=== PATIENT | female | born 1975 | race Hispanic/Latino ===

== ENCOUNTER 2017-08-31 17:21 | Emergency (ER) | payer OTHER ==
[2017-08-31] MEDS ORDERED: ORPHENADRINE CITRATE 30 MG/ML ML ONE (18:03)
[2017-08-31] MEDS ORDERED: KETOROLAC TROMETHAMINE 30MG/ML ONE (18:04)
[2017-08-31 18:06] LABS: BASOPHILS % (AUTO) 0.6 % (0.0-5.0); EOSINOPHILS % (AUTO) 2.9 % (0.0-8.0); HEMATOCRIT 42.9 % (36-48); MEAN CORPUSCULAR HEMOGLOBIN 34.7 pg (27.0-33.0); MEAN CORPUSCULAR HGB CONC 35.6 g/dL (32.0-36.0); MEAN CORPUSCULAR VOLUME 97.5 fL (79-99); MONOCYTES % (AUTO) 8.2 % (3.0-13.0); NEUTROPHILS % (AUTO) 65.3 % (40.0-77.0); PLATELET COUNT (AUTO) 245 K/uL (130-400); RED CELL DISTRIBUTION WIDTH 12.6 % (11.0-15.5); WHITE BLOOD COUNT (AUTO) 7.7 K/uL (4.8-10.8)
[2017-08-31 18:15] LABS: CREATININE 0.8 mg/dL (0.5-1.5); POTASSIUM 3.7 mmol/L (3.5-5.1)
== END 2017-08-31 20:32 | disposition home or self-care (01) ==
LOC: EDH 17:21
DX: S39.012A Strain of muscle, fascia and tendon of lower back, initial encounter (principal); Z72.0 Tobacco use; X50.9XXA Other and unspecified overexertion or strenuous movements or postures, initial encounter; Y93.89 Activity, other specified; Y92.89 Other specified places as the place of occurrence of the external cause; Y99.8 Other external cause status
CPT/HCPCS: 36415; 80048; 84703; 85025; 96374; 96375; 99284; J1885; J2360

== ENCOUNTER 2018-05-31 03:25 | Emergency (ER) | payer OTHER ==
[2018-05-31 03:45] LABS: BASOPHILS % (AUTO) 0.8 % (0.0-5.0); EOSINOPHILS % (AUTO) 3.3 % (0.0-8.0); HEMATOCRIT 33.9 % (36-48); LYMPHOCYTES % (AUTO) 32.4 % (21.0-51.0); MEAN CORPUSCULAR HEMOGLOBIN 34.7 pg (27.0-33.0); MEAN CORPUSCULAR HGB CONC 35.1 g/dL (32.0-36.0); NEUTROPHILS % (AUTO) 57.5 % (40.0-77.0); PLATELET COUNT (AUTO) 217 K/uL (130-400); RED BLOOD CELL COUNT(AUTO) 3.42 MIL/uL (4.00-5.50); RED CELL DISTRIBUTION WIDTH 12.6 % (11.0-15.5); WHITE BLOOD COUNT (AUTO) 5.4 K/uL (4.8-10.8)
[2018-05-31] MEDS ORDERED: IOHEXOL 350 MG/ML 100ML INFUS..BTL IV ONE (03:54)
[2018-05-31 03:55] LABS: CREATININE 0.6 mg/dL (0.5-1.5); POTASSIUM 3.6 mmol/L (3.5-5.1)
[2018-05-31 03:59] LABS: ALBUMIN 3.6 g/dL (3.5-5.0); BILIRUBIN,TOTAL 0.1 mg/dL (0.2-1.0); TOTAL PROTEIN, SERUM 7.4 g/dL (6.0-8.3)
[2018-05-31 04:00] LABS: INR 1.03 (0.85-1.15); PARTIAL THROMBOPLASTIN TIME 24.7 SEC (26.3-35.5); PROTHROMBIN TIME 10.8 SEC (9.6-11.6)
[2018-05-31 04:40] LABS: APPEARANCE,URINE Clear (CLEAR); BILIRUBIN,URINE Negative (NEGATIVE); COLOR,URINE Yellow (YELLOW); GLUCOSE, URINE (UA) Negative (NEGATIVE); KETONES,URINE Negative (NEGATIVE); LEUKOCYTE ESTERASE ,URINE Negative (NEGATIVE); NITRATE,URINE Negative (NEGATIVE); OCCULT BLOOD,URINE Negative (NEGATIVE); PH,URINE 5.5 (5.0-8.0); PROTEIN,URINE Negative (NEGATIVE)
[2018-05-31 04:49] LABS: AMPHET/METH SCREEN,URINE NEGATIVE (NEGATIVE); BARBITURATE SCREEN, URINE NEGATIVE (NEGATIVE); BENZODIAZEPINES SCREEN,URINE NEGATIVE (NEGATIVE); CANNABINOID SCREEN,URINE NEGATIVE (NEGATIVE); COCAINE SCREEN,URINE NEGATIVE (NEGATIVE); OPIATE SCREEN,URINE NEGATIVE (NEGATIVE); PHENCYCLIDINE SCREEN,URINE NEGATIVE (NEGATIVE)
[2018-05-31] MEDS ORDERED: KETOROLAC TROMETHAMINE 30MG/ML ONE (05:42)
== END 2018-05-31 06:37 | disposition home or self-care (01) ==
LOC: EDH 03:25
DX: S39.012A Strain of muscle, fascia and tendon of lower back, initial encounter (principal); S76.011A Strain of muscle, fascia and tendon of right hip, initial encounter; R79.1 Abnormal coagulation profile; V03.99XA Pedestrian with other conveyance injured in collision with car, pick-up truck or van, unspecified whether traffic or nontraffic accident, initial encounter; Y93.89 Activity, other specified; Y92.89 Other specified places as the place of occurrence of the external cause; Y99.8 Other external cause status
CPT/HCPCS: 36415; 71045; 71260; 72125; 73552; 74177; 80053; 80305; 81003; 82550; 83690; 84484; 85025; 85610; 85730; 93005; 96374; 99284; G0480; J1885; Q9967

== ENCOUNTER 2018-06-12 21:59 | Emergency (ER) | payer OTHER ==
[2018-06-12] MEDS ORDERED: IBUPROFEN 200 MG TAB ONE (22:40)
[2018-06-12] MEDS ORDERED: IBUPROFEN 400 MG TABLET ONE (22:40)
== END 2018-06-12 23:34 | disposition home or self-care (01) ==
LOC: EDH 21:59
DX: S13.4XXA Sprain of ligaments of cervical spine, initial encounter (principal); Z72.0 Tobacco use; V49.49XA Driver injured in collision with other motor vehicles in traffic accident, initial encounter; Y93.89 Activity, other specified; Y92.89 Other specified places as the place of occurrence of the external cause; Y99.8 Other external cause status
CPT/HCPCS: 72040

== ENCOUNTER 2019-07-13 23:20 | Emergency (ER) | payer SELFPAY ==
[2019-07-13 23:50] LABS: BASOPHILS % (AUTO) 0.6 % (0.0-5.0); EOSINOPHILS % (AUTO) 2.3 % (0.0-8.0); HEMATOCRIT 40.9 % (36-48); LYMPHOCYTES % (AUTO) 33.3 % (21.0-51.0); MEAN CORPUSCULAR HEMOGLOBIN 32.3 pg (27.0-33.0); MEAN CORPUSCULAR HGB CONC 34.7 g/dL (32.0-36.0); MEAN CORPUSCULAR VOLUME 93.2 fL (79-99); NEUTROPHILS % (AUTO) 55.9 % (40.0-77.0); PLATELET COUNT (AUTO) 235 K/uL (130-400); RED BLOOD CELL COUNT(AUTO) 4.39 MIL/uL (4.00-5.50); RED CELL DISTRIBUTION WIDTH 12.4 % (11.0-15.5); WHITE BLOOD COUNT (AUTO) 8.6 K/uL (4.8-10.8)
[2019-07-14 00:01] LABS: CREATININE 0.7 mg/dL (0.5-1.5); POTASSIUM 3.6 mmol/L (3.5-5.1)
[2019-07-14 00:04] LABS: INR 0.95 (0.85-1.15); PARTIAL THROMBOPLASTIN TIME 24.6 SEC (26.3-35.5); PROTHROMBIN TIME 10.3 SEC (9.6-11.6)
[2019-07-14 00:06] LABS: ALBUMIN 3.6 g/dL (3.5-5.0); BILIRUBIN,TOTAL 0.3 mg/dL (0.2-1.0); TOTAL PROTEIN, SERUM 7.8 g/dL (6.0-8.3)
[2019-07-14] MEDS ORDERED: SODIUM CHLORIDE 0.9% 1000ML 1,000 ML IV ONE (00:40)
== END 2019-07-14 03:36 | disposition home or self-care (01) ==
LOC: EDH 23:20
DX: K62.5 Hemorrhage of anus and rectum (principal); F10.20 Alcohol dependence, uncomplicated; R42 Dizziness and giddiness; R19.7 Diarrhea, unspecified; Z72.0 Tobacco use
CPT/HCPCS: 36415; 80053; 82270; 85025; 85610; 85730; 96360; 96361; 99283; J7030

== ENCOUNTER 2021-07-06 15:54 | Emergency (ER) | payer OTHER ==
[~2021-07-06] VITALS: Ht 139.7 cm; Wt 52.2 kg
[2021-07-06 16:16] LABS: BASOPHILS % (AUTO) 0.5 % (0.0-5.0); EOSINOPHILS % (AUTO) 3.3 % (0.0-8.0); HEMATOCRIT 41.9 % (36-48); LYMPHOCYTES % (AUTO) 25.7 % (21.0-51.0); MEAN CORPUSCULAR HEMOGLOBIN 32.8 pg (27.0-33.0); MEAN CORPUSCULAR HGB CONC 34.4 g/dL (32.0-36.0); MEAN CORPUSCULAR VOLUME 95.4 fL (79-99); MONOCYTES % (AUTO) 6.7 % (3.0-13.0); NEUTROPHILS % (AUTO) 63.1 % (40.0-77.0); PLATELET COUNT (AUTO) 187 K/uL (130-400); RED BLOOD CELL COUNT(AUTO) 4.39 MIL/uL (4.00-5.50); RED CELL DISTRIBUTION WIDTH 12.6 % (11.0-15.5); WHITE BLOOD COUNT (AUTO) 7.4 K/uL (4.8-10.8)
[2021-07-06 16:24] LABS: CREATININE 0.6 mg/dL (0.5-1.5); POTASSIUM 3.7 mmol/L (3.5-5.1)
[2021-07-06 16:29] LABS: ALBUMIN 3.5 g/dL (3.5-5.0); BILIRUBIN,TOTAL 0.3 mg/dL (0.2-1.0)
[2021-07-06 17:18] LABS: AMPHET/METH SCREEN,URINE NEGATIVE (NEGATIVE); BARBITURATE SCREEN, URINE NEGATIVE (NEGATIVE); BENZODIAZEPINES SCREEN,URINE NEGATIVE (NEGATIVE); CANNABINOID SCREEN,URINE NEGATIVE (NEGATIVE); COCAINE SCREEN,URINE POSITIVE (NEGATIVE); OPIATE SCREEN,URINE NEGATIVE (NEGATIVE); PHENCYCLIDINE SCREEN,URINE NEGATIVE (NEGATIVE)
[2021-07-06 17:19] LABS: BILIRUBIN,URINE Negative (NEGATIVE); COLOR,URINE Yellow (YELLOW); GLUCOSE, URINE (UA) Negative (NEGATIVE); KETONES,URINE Negative (NEGATIVE); LEUKOCYTE ESTERASE ,URINE Negative (NEGATIVE); NITRATE,URINE Negative (NEGATIVE); OCCULT BLOOD,URINE Negative (NEGATIVE); PROTEIN,URINE Negative (NEGATIVE)
[2021-07-06 17:20] LABS: HCG,QUAL RESULT NEGATIVE (NEGATIVE)
[2021-07-06 17:25] LABS: APPEARANCE,URINE HAZY (CLEAR)
[2021-07-06 17:26] LABS: BACTERIA,URINE Few /HPF (None Seen); RBC,URINE None Seen /HPF (0-1); WBC,URINE 0-1 /HPF (0-1)
[2021-07-06] MEDS ORDERED: PANTOPRAZOLE 40 MG/VIAL IVP ONE (18:00)
[2021-07-06 18:21] VITALS: BP 120/81
== END 2021-07-06 18:31 | disposition home or self-care (01) ==
LOC: EDH 15:54
DX: S39.012A Strain of muscle, fascia and tendon of lower back, initial encounter (principal); F14.10 Cocaine abuse, uncomplicated; X58.XXXA Exposure to other specified factors, initial encounter; Y93.89 Activity, other specified; Y92.89 Other specified places as the place of occurrence of the external cause; Y99.8 Other external cause status
CPT/HCPCS: 36415; 80053; 80305; 81001; 81025; 84484; 85025; 93005; 96374; 99284; C9113

== ENCOUNTER 2022-09-01 22:33 | Emergency (ER) | payer OTHER ==
[~2022-09-01] VITALS: Ht 139.7 cm; Wt 61.2 kg
[2022-09-01 23:28] LABS: BASOPHILS % (AUTO) 0.4 % (0.0-5.0); EOSINOPHILS % (AUTO) 1.2 % (0.0-8.0); HEMATOCRIT 41.5 % (36-48); LYMPHOCYTES % (AUTO) 9.9 % (21.0-51.0); MEAN CORPUSCULAR HEMOGLOBIN 34.1 pg (27.0-33.0); MEAN CORPUSCULAR HGB CONC 35.2 g/dL (32.0-36.0); MONOCYTES % (AUTO) 4.7 % (3.0-13.0); PLATELET COUNT (AUTO) 182 K/uL (130-400); RED BLOOD CELL COUNT(AUTO) 4.28 MIL/uL (4.00-5.50); RED CELL DISTRIBUTION WIDTH 12.6 % (11.0-15.5); WHITE BLOOD COUNT (AUTO) 10.4 K/uL (4.8-10.8)
[2022-09-01] MEDS ORDERED: IPRATROPIUM/ALBUTEROL SULFATE 3 ML SOLUTION IH ONE (23:30)
[2022-09-01] MEDS ORDERED: SOLU-MEDROL 125MG VIAL IVP ONE (23:30)
[2022-09-02 00:17] LABS: CREATININE 0.6 mg/dL (0.5-1.5); POTASSIUM 3.5 mmol/L (3.5-5.1)
[2022-09-02 00:21] LABS: ALBUMIN 3.5 g/dL (3.5-5.0); TOTAL PROTEIN, SERUM 7.4 g/dL (6.0-8.3)
[2022-09-02] MEDS ORDERED: DIPH25CA85 PO (00:57)
[2022-09-02] MEDS ORDERED: EPIN0.3P3 IJ (00:57)
[2022-09-02 01:00] VITALS: BP 109/58
[2022-09-02] MEDS ORDERED: ONDANSETRON 4MG INJ IVP ONE (01:00)
== END 2022-09-02 01:23 | disposition home or self-care (01) ==
LOC: EDH 22:33
DX: T78.49XA Other allergy, initial encounter (principal); F17.200 Nicotine dependence, unspecified, uncomplicated; R06.02 Shortness of breath; Z98.890 Other specified postprocedural states; X58.XXXA Exposure to other specified factors, initial encounter
CPT/HCPCS: 99284; 71045; 80053; 85025; 36415; 94640; 96374; 96375; J2930; J2405

== ENCOUNTER 2023-11-21 14:22 | Emergency (ER) | payer OTHER ==
[~2023-11-21] VITALS: Ht 139.7 cm; Wt 57.2 kg
[~2023-11-21 14:22] MED LIST: DIPH25CA85 PO; EPIN0.3P3 IJ
[2023-11-21 16:09] LABS: BASOPHILS # (AUTO) 0.05 K/uL (0.00-0.20); BASOPHILS % (AUTO) 0.6 % (0.0-5.0); EOSINOPHILS # (AUTO) 0.24 K/uL (0.00-0.70); EOSINOPHILS % (AUTO) 2.8 % (0.0-8.0); HEMATOCRIT 47.4 % (36-48); IMMATURE GRANULOCYTE ABSOLUTE 0.09 K/uL (0-1); LYMPHOCYTES # (AUTO) 1.9 K/uL (1.0-4.8); LYMPHOCYTES % (AUTO) 22.4 % (21.0-51.0); MEAN CORPUSCULAR HEMOGLOBIN 34.8 pg (27.0-33.0); MEAN CORPUSCULAR HGB CONC 35.9 g/dL (32.0-36.0); MEAN CORPUSCULAR VOLUME 96.9 fL (79-99); MONOCYTES # (AUTO) 0.6 K/uL (0.1-1.0); MONOCYTES % (AUTO) 6.8 % (3.0-13.0); NEUTROPHILS # (AUTO) 5.7 K/uL (1.8-7.7); NEUTROPHILS % (AUTO) 66.3 % (40.0-77.0); PLATELET COUNT (AUTO) 214 K/uL (130-400); RED BLOOD CELL COUNT(AUTO) 4.89 MIL/uL (4.00-5.50); RED CELL DISTRIBUTION WIDTH 12.3 % (11.0-15.5); WHITE BLOOD COUNT (AUTO) 8.6 K/uL (4.8-10.8)
[2023-11-21 16:10] LABS: APPEARANCE,URINE CLOUDY (CLEAR); BILIRUBIN,URINE NEGATIVE (NEGATIVE); COLOR,URINE YELLOW (YELLOW); GLUCOSE, URINE (UA) 70 mg/dL (NEGATIVE); KETONES,URINE NEGATIVE (NEGATIVE); LEUKOCYTE ESTERASE ,URINE NEGATIVE Leu/uL (NEGATIVE); NITRATE,URINE NEGATIVE (NEGATIVE); PH,URINE 5.5 (5.0-8.0); PROTEIN,URINE 20 mg/dL (NEGATIVE)
[2023-11-21 16:12] LABS: ADD UA MICROSCOPIC YES
[2023-11-21 16:15] LABS: MUCUS,URINE MANY LPF (None Seen); SQUAMOUS EPITHELIAL CELL,UR MANY /HPF (0-2)
[2023-11-21 16:19] LABS: CREATININE 0.9 mg/dL (0.5-1.0); POTASSIUM 3.8 mmol/L (3.5-5.1)
[2023-11-21 16:30] LABS: ALBUMIN 3.9 g/dL (3.5-5.0); BILIRUBIN,TOTAL 0.5 mg/dL (0.2-1.0); TOTAL PROTEIN, SERUM 8.3 g/dL (6.0-8.3)
[2023-11-21] MEDS ORDERED: IBUP-2070 PO (18:28)
[2023-11-21 18:49] VITALS: BP 126/81; PULSE 86; RESP 16; O2SAT 98
== END 2023-11-21 18:54 | disposition home or self-care (01) ==
LOC: EDH 14:22
DX: D25.9 Leiomyoma of uterus, unspecified (principal); S46.811A Strain of other muscles, fascia and tendons at shoulder and upper arm level, right arm, initial encounter; F17.200 Nicotine dependence, unspecified, uncomplicated; Z79.899 Other long term (current) drug therapy; Z98.890 Other specified postprocedural states; X58.XXXA Exposure to other specified factors, initial encounter; Y93.89 Activity, other specified; Y92.89 Other specified places as the place of occurrence of the external cause; Y99.8 Other external cause status
CPT/HCPCS: 36415; 73030; 76856; 80053; 81001; 84702; 85025

== ENCOUNTER 2024-05-12 02:52 | Emergency (ER) | payer BC ==
[~2024-05-12] VITALS: Ht 139.7 cm; Wt 62.6 kg
[~2024-05-12 02:52] MED LIST changes: +IBUP-2070 PO
[2024-05-12] MEDS ORDERED: AMOX1TAB16 PO (03:51)
--- NOTE | 2024-05-12 03:52 | ERN ---
ED Note History of Present Illness Stated Complaint: C/O SPIDER BITE TO RIGHT HAND Chief Complaint: Insect Bite Time Seen by MD: 02:56 Dictation: This is a 48-year-old female accompanied by her mother came into the ER stating that she had an insect bite to be evaluated. This happened a day ago when she noticed a small lesion on the lateral aspect of the right hand. She stated that she saw a brownish spider right next to her hand. She also reported pain in the elbow area with some erythema. Vital signs reviewed Allergies: Coded Allergies: No Known Drug Allergies (Unverified Allergy, Unknown, 07/14/19) Home Meds Active Scripts Amoxicillin/Potassium Clav (Amox Tr-K Clv 875-125 mg Tab) 875 Mg-125 Mg Tablet, 1 EACH PO BID for 5 Days, #10 TAB 0 Refills Prov:ELAN BRADY MD 05/12/24 Ibuprofen (Ibuprofen) 600 Mg Tablet, 600 MG PO Q6H PRN for PAIN, #15 TAB 0 Refills Prov:MADY SOLO NP 11/21/23 Diphenhydramine HCl (Benadryl) 25 Mg Capsule, 25 MG PO TID, #30 CAP Prov:KATERINA VILLA MD 09/02/22 Epinephrine (Epipen 2-Mukund) 0.3 Mg/0.3 Ml Auto.injct, 0.3 MG IJ AD, #1 KIT Prov:KATERINA VILLA MD 09/02/22 Past Medical History Past Medical History: No Pertinent History Additional Past Medical Hx: HEART MUR MUR Surgical History: None Social History: Smokers, Lives with family History: Not Applicable LMP: Apr 15, 2024 : 1 Para: 0 Aborts: 0 RN Note Reviewed/Agreed w/PFSH: Yes Review of System Dictation Constitutional: Negative for fever,chills, and weight loss Eyes: Negative for injury, pain,redness, and discharge ENT: Negative for injury,pain or swelling Cardiovascular: Negative for chest pain, palpitations, and edema Respiratory: Negative for shortness of breath, cough, and wheezing, Abdomen/GI: Negative for abdominal pain, nausea, vomiting, diarrhea, and constipation Back: Negative for injury and pain : Negative for injury, bleeding and discharge MS/Extremity: Negative for injury and deformity Skin: Positive for blistering lesion on the right hand, and discoloration Neuro: Negative for headache, weakness, numbness, tingling, and seizure Psych: Negative for suicide ideation, homicidal ideation, and hallucinations Initial Vital Sign VS Vital Signs Date Time Temp Pulse Resp B/P (MAP) Pulse Ox O2 Delivery O2 Flow Rate FiO2 05/12/24 02:53 96.8 76 20 133/81 98 Room Air 05/12/24 04:21 0 21 Physical Exam Dictation General: awake, alert, NAD Head/Face: Normocephalic, atraumatic Eyes: PERRL, EOMI, vision at baseline ENT: oral cavity clear, TMs clear, no signs of infection Neck: Trachea midline, supple, no nuchal rigidity Cardiovascular: RRR, normal S1/S2, No MRGs, no JVD Respiratory: CTAB, no respiratory distress, No rales or wheezes Abdomen: Soft, non-tender, non-distended, normal bowel sounds, no guarding or rebound. Skin: Warm, dry, normal turgor, single lesion about half an inch on the lateral aspect of the right hand dorsum. Early vesiculations noted. There was area of erythema lymph nodes palpable in the elbow area which are tender to touch MS/Extremity: Pulses equal, no cyanosis, neurovascular intact, FROM Neuro: COAx4, GCS 15, strength 5/5, CN 2-12 intact, normal cerebellar exam, normal gait, Psych: Normal behavior, mood, and affect normal Extremities-trace edema without any palpable cords, Homans sign is negative ED Course ED Course Orders Procedure Category Date Status Time Tetanus,Diphtheria PHA 05/12/24 Complete Tox [Adult] (Diphther 04:00 Oxycodone/Acetamin PHA 05/12/24 Complete 5/325mg Tab (Percocet 04:00 Ceftriaxone 1g Vial PHA 05/12/24 Complete (Rocephine 1g Inj) 04:00 Lidocaine Hcl 1% 20ml PHA 05/12/24 Complete Vial (Lidocaine Hc 03:58 Lidocaine Hcl 1% 20ml PHA 05/12/24 Complete Vial (Lidocaine Hc 04:30 Current Medications Medications (Trade) Dose Ordered Sig/Addie Route PRN Reason Start Time Stop Time Status Last Admin Dose Admin Ceftriaxone Sodium (ROCEphine 1G INJ) 1 gm ONCE ONCE IM 05/12/24 04:00 05/12/24 04:01 DC 05/12/24 04:14 Lidocaine HCl (Lidocaine HCl 1% 20ml Vial) 2 ml ONCE ONCE INJ 05/12/24 04:30 05/12/24 04:31 DC 05/12/24 04:24 Lidocaine HCl (Lidocaine HCl 1% 20ml Vial) 20 ml STK-MED ONCE .ROUTE 05/12/24 03:58 05/12/24 03:59 DC Oxycodone/ Acetaminophen (perCOCET) 1 tab ONCE ONCE PO 05/12/24 04:00 05/12/24 04:01 DC 05/12/24 04:00 Tetanus/ Diphtheria Toxoids Adsorbed (DiphthERIA-teTANUS TOXOID [ADULT]/ DECAVAC) 0.5 ml ONCE ONCE IM 05/12/24 04:00 05/12/24 04:01 DC 05/12/24 04:16 Vital Signs Date Time Temp Pulse Resp B/P (MAP) Pulse Ox O2 Delivery O2 Flow Rate FiO2 05/12/24 04:21 98.4 78 18 130/76 98 Room Air* 0 21 05/12/24 02:53 96.8 76 20 133/81 98 Room Air We will administer medications according to the patient's complaint. Once the results are available, will review and personally interpreted the labs to rule out any acute life-threatening emergency the trach require immediate intervention and treatment. I will then re-evaluate the patient after treatment and diagnostic exams have return to determine whether the patient requires any further testing, can safely be discharged home or need further admission to hospital for additional treatment and evaluation. With a concern for a brown recluse spider bite, local wound care and empiric antibiotic therapy was pursued. Patient to be discharged home on oral antibiotic therapy. Tetanus toxoid was updated Medical Decision Making MDM MDM: Differential diagnosis: Brown recluse spider bite, tick bite, mosquito bite, autoimmune rash Rationale: Tests considered and ordered secondary to shared decision making include: Previous outside records reviewed: Old ER visits. Risk of complication and/or morbidity or mortality of patient management: None Medications-Per medication reconciliation Need for hospitalization: Patient does not meet criteria for hospitalization. Need for emergency major/minor surgery: No There are no social concerns with this patient. Prescription drug management Prescriptions will include symptomatic care Patient's prior external medical records from other ER visits were reviewed by me as indicated. Prior testing and results from previous visits were reviewed. Prior tests were taken into account with medical decision making and resource utilization, independent historian/historians were used to obtain complete medical history. I independently interpreted the test that were performed, results were reviewed by me and considered findings on radiology if ordered. Medical management and examination interpretation discussions were had by me with other qualified healthcare professionals as indicated for the patient's care. Problem List Problem List: (1) Vesicular skin lesions (2) Brown recluse spider bite (3) Lymphadenitis DX & DISP Disposition: Discharge Departure Impression: Primary Impression: Brown recluse spider bite Additional Impressions: Vesicular skin lesions, Lymphadenitis Condition: Stable Scripts Amoxicillin/Potassium Clav (Amox Tr-K Clv 875-125 mg Tab) 875 Mg-125 Mg Tablet 1 EACH PO BID for 5 Days, #10 TAB 0 Refills Prov: ELAN BRADY MD 05/12/24 Additional Instructions: Patient and the caregiver have been informed of all the diagnostic tests and the imaging conducted during the today's visit to the emergency room and has verbalized understanding of the results I have personally reviewed and interpreted all diagnostic exams performed here in the ER today as well as the vital signs documented by the nursing staff. The patient is now being discharged to home and should follow up with the primary care physician or the specialist as directed by the ER staff. Follow-up with primary care provider in 1 to 2 days. Take medications as directed here in the emergency room. Okay to continue home medications unless otherwise discussed during your visit in the emergency room today. Return to your nearest emergency room if symptoms worsen or if there is no improvement. Call 911 if you need immediate assistance. Take Tylenol or Motrin [id number] as needed and if no contraindications are present. Increase oral hydration. A wound culture or urine culture was ordered here in the emergency room department please follow-up with primary care provider and advise them to get repeat ports from our facility. If you had any Derrell wrap/splints that were applied here, please do not remove them until you see your primary care or specialty. Referrals: SELF,REFERRAL (PCP) ELAN BRADY MD May 12, 2024 03:52
[2024-05-12] MEDS: oxyCODONE/aceTAMIN 5/325MG TAB PO ONE (04:00)
[2024-05-12] MEDS: LIDOCAINE HCL 1% 20 ML VIAL ONE (04:10)
[2024-05-12] MEDS: cefTRIAXone 1G VIAL IM ONE (04:14)
[2024-05-12] MEDS: teTANUS/diphthERIA TOXOID [ADULT] 0.5 ML VIAL IM ONE (04:16)
[2024-05-12 04:21] VITALS: BP 130/76; PULSE 78; RESP 18; TEMP 98.4; O2SAT 98
[2024-05-12] MEDS: LIDOCAINE HCL 1% 20 ML VIAL INJ ONE (04:24)
== END 2024-05-12 04:21 | disposition home or self-care (01) ==
LOC: EDH 02:52
DX: T63.331A Toxic effect of venom of brown recluse spider, accidental (unintentional), initial encounter (principal); I88.9 Nonspecific lymphadenitis, unspecified; F17.200 Nicotine dependence, unspecified, uncomplicated; Z23 Encounter for immunization; Z79.899 Other long term (current) drug therapy; Y92.89 Other specified places as the place of occurrence of the external cause; Y93.89 Activity, other specified; Y99.8 Other external cause status
CPT/HCPCS: 99284; 90714; 96372; 90471; J0696

== ENCOUNTER 2024-12-30 17:28 | Emergency (ER) | payer BC ==
[~2024-12-30] VITALS: Ht 139.7 cm; Wt 66.2 kg
[~2024-12-30 17:28] MED LIST changes: +AMOX1TAB16 PO; +IBUP-1492 PO; -IBUP-2070 PO
--- NOTE | 2024-12-30 18:10 | ERN ---
General Chief Complaint: Multiple Complaints Stated Complaint: NAUSEA Time Seen by MD: 17:31 Time Seen by Midlevel: 17:31 Source: patient History of Present Illness Initial Comments Patient is a 49-year-old female with a previous medical history that includes a heart murmur presenting to the emergency department for evaluation of nausea, dizziness, and diarrhea. Patient states she was out in the sun since noon today when she developed the nausea, left-sided muscle cramping, and dizziness. She does report slightly improved on arrival. Allergies: Coded Allergies: No Known Drug Allergies (Unverified Allergy, Unknown, 07/14/19) Home Meds Active Scripts Amoxicillin/Potassium Clav (Amox Tr-K Clv 875-125 mg Tab) 875 Mg-125 Mg Tablet, 1 EACH PO BID for 5 Days, #10 TAB 0 Refills Prov:ELAN BRADY MD 05/12/24 Ibuprofen (Ibuprofen) 600 Mg Tablet, 600 MG PO Q6H PRN for PAIN, #15 TAB 0 Refills Prov:MADY SOLO NP 11/21/23 Diphenhydramine HCl (Benadryl) 25 Mg Capsule, 25 MG PO TID, #30 CAP Prov:KATERINA VILLA MD 09/02/22 Epinephrine (Epipen 2-Mukund) 0.3 Mg/0.3 Ml Auto.injct, 0.3 MG IJ AD, #1 KIT Prov:KATERINA VILLA MD 09/02/22 Past Medical History Past Medical History: No Pertinent History Medical History Other: HEART MUR MUR Past Surgical History: None Social History Social History: Smokers, Lives with family Female( History) History: Not Applicable : 1 Para: 0 Aborts: 0 ROS Dictation CONSTITUTIONAL: Negative except for HPI HEAD/FACE: Negative except for HPI EENT: Negative except for HPI RESPIRATORY: Negative except for HPI GASTROINTESTINAL/ABDOMINAL: Negative except for HPI GENITOURINARY: Negative except for HPI MUSCULOSKELETAL: Negative except for HPI INTEGUMENTARY: Negative except for HPI NEUROLOGICAL/PSYCH: Negative except for HPI HEMATOLOGIC/LYMPHATIC: Negative except for HPI All Systems Negative, Except as noted above. 13 point review of systems assessed and all negative except for above. Physical Exam Physical Exam Dictation Vital Signs reviewed General Appearance: Alert, oriented x 3, no acute distress, well developed, nourished. Head and Face: non-traumatic. Eyes: PERRL, pink conjunctivas, eyelid no trauma, anterior chamber with arcus senilis. Ears: Pinnas intact and no signs of trauma or erythema ear canals clear and no discharge TM no erythema Nose: No discharge, no bleeding. Oropharynx: Mouth normal, tongue pink, pharynx clear,no erythema, tonsils no exudates, no abscesses noted, mucous membrane moist Neck: Supple, non-tender, no thyromegaly, no masses, no JVD, no bruits Breast:Deferred Chest:No tenderness, no crepitus, no paradoxical movement, no retractions Lungs:Clear, well-ventilated, symmetric, no rales, no wheezing, no rhonchi, no stridor, good breath sounds bilaterally Heart: Regular rate, regular rhythm, no murmur, no gallops Vascular: no peripheral edema, Abdomen: Soft, positive bowel sounds, nondistended, no guarding, nontender, no rebound, no masses no hepatomegaly, no splenomegaly, no Quezada's sign, no hernias. Rectal: Deferred Genital: Deferred Neurological: Normal speech, motor function intact, sensory function intact Musculoskeletal: Neck nontender, full range of motion, back nontender, full range of motion, Extremities: nontender, full range of motion Skin: Color pink, dry, no turgor, no rash, no lacerations, no abrasions, no contusions. Lymphatic: Deferred Results Laboratory and Microbiology Lab and Micro Result Laboratory Tests Test 12/30/24 18:20 White Blood Count 11.5 K/uL (4.8-10.8) H Red Blood Count 4.40 MIL/uL (4.00-5.50) Hemoglobin 14.1 g/dL (12.0-16.0) Hematocrit 39.2 % (36-48) Mean Corpuscular Volume 89.1 fL (79-99) Mean Corpuscular Hemoglobin 32.0 pg (27.0-33.0) Mean Corpuscular Hemoglobin Concent 36.0 g/dL (32.0-36.0) Red Cell Distribution Width 12.9 % (11.0-15.5) Platelet Count 252 K/uL (130-400) Mean Platelet Volume 8.7 fL (7.5-10.5) Immature Granulocyte % (Auto) 0.6 % (0-1) Neutrophils (%) (Auto) 82.8 % (40.0-77.0) H Lymphocytes (%) (Auto) 11.9 % (21.0-51.0) L Monocytes (%) (Auto) 3.7 % (3.0-13.0) Eosinophils (%) (Auto) 0.4 % (0.0-8.0) Basophils (%) (Auto) 0.6 % (0.0-5.0) Neutrophils # (Auto) 9.5 K/uL (1.8-7.7) H Lymphocytes # (Auto) 1.4 K/uL (1.0-4.8) Monocytes # (Auto) 0.4 K/uL (0.1-1.0) Eosinophils # (Auto) 0.05 K/uL (0.00-0.70) Basophils # (Auto) 0.07 K/uL (0.00-0.20) Absolute Immature Granulocyte (auto 0.07 K/uL (0-1) Nucleated Red Blood Cells 0.0 % (0.0-0.19) Sodium Level 140 mmol/L (136-145) Potassium Level 3.0 mmol/L (3.5-5.1) *L Chloride Level 106 mmol/L (101-111) Carbon Dioxide Level 26 mmol/L (21-32) Blood Urea Nitrogen 14 mg/dL (7-18) Creatinine 0.8 mg/dL (0.5-1.0) Glomerular Filtration Rate Calc 91 mL/min (>90) Random Glucose 83 mg/dL (70-105) Total Calcium 8.9 mg/dL (8.5-10.1) Total Bilirubin 0.4 mg/dL (0.2-1.0) Direct Bilirubin 0.1 mg/dL (0.0-0.3) Aspartate Amino Transf (AST/SGOT) 14 U/L (10-37) Alanine Aminotransferase (ALT/SGPT) 21 U/L (12-78) Alkaline Phosphatase 114 U/L (50-136) Total Creatine Kinase 38 U/L (21-232) # Troponin I High Sensitivity 19 ng/L (4-50) Total Protein 7.6 g/dL (6.0-8.3) Albumin 3.5 g/dL (3.5-5.0) Serum Test, Qualitative NEGATIVE (NEGATIVE) Labs Reviewed?: Yes MDM MDM: Differential diagnosis: Dehydration, rhabdomyolysis, electrolyte abnormality There are no social concerns with this patient. Prescription drug management Prescriptions will include: None Medical management and examination interpretation discussions were had by me with other qualified healthcare professionals as indicated for the patient's care. ED Course Orders Procedure Category Date Status Time 12 Lead Ekg Tracing- EKG 12/30/24 Logged Technical 18:05 Cbc With Differential LAB 12/30/24 Complete 18:05 Basic Metabolic Panel LAB 12/30/24 Complete 18:05 Creatine Kinase, Total LAB 12/30/24 Complete 18:05 Hepatic Function Panel LAB 12/30/24 Complete 18:05 Troponin I High LAB 12/30/24 Complete Sensitivity 18:05 Chest 1vw RAD 12/30/24 Resulted 18:05 Ct Head/Brain W/O CT 12/30/24 Resulted Contrast 18:05 Testing, LAB 12/30/24 Complete Serum Hcg 18:05 0.9%Nacl 1000ml (Ns PHA 12/30/24 In Process 1000ml) 18:30 Potassium Bicarb/Cit PHA 12/30/24 In Process Ac 25meq (K-Lyte Ta 19:30 Current Medications Medications (Trade) Dose Ordered Sig/Addie Route PRN Reason Start Time Stop Time Status Last Admin Dose Admin Potassium Bicarbonate (K-Lyte Tablet Eff 25 Meq Tablet.eff) 50 meq ONCE PO 12/30/24 19:30 12/30/24 23:30 12/30/24 20:05 Sodium Chloride 1,000 ml @ 0 mls/hr ONCE IV 12/30/24 18:30 12/30/24 22:30 12/30/24 18:48 Vital Signs Date Time Temp Pulse Resp B/P (MAP) Pulse Ox O2 Delivery O2 Flow Rate FiO2 12/30/24 20:11 72 18 137/83 98 Room Air* 0 21 12/30/24 18:11 98.8 82 18 126/85 98 Room Air 0 12/30/24 18:09 72 17 143/81 96 Room Air* 0 21 [place] [id number] [place] [id number] IMAGING REPORT Signed PATIENT: DEDE SONG MR#: [id number] : 1975 SEX: F AGE: 49 LOCATION: [facility] ORDER 04 STATUS: REG ER REPORT#: [id number] SERVICE 04 REASON: dizzy ORDERING PHYSICIAN: RICKY MORRIS PROCEDURE: HEAD WO - CT HEAD/BRAIN W/O CONTRAST EXAM: CT Head Without IV contrast. CLINICAL HISTORY: dizziness. TECHNIQUE: Axial computed tomography images of the head/brain without intravenous contrast. COMPARISON: None provided. FINDINGS: BRAIN: No evidence of acute hemorrhage. No mass lesion. No CT evidence for acute territorial infarct. No midline shift or extra-axial collections. VENTRICLES: No hydrocephalus. ORBITS: The orbits are unremarkable. SINUSES AND MASTOIDS: The paranasal sinuses and mastoid air cells are clear. BONES: No fracture. SOFT TISSUES: Unremarkable. IMPRESSION: No acute intracranial abnormality. /[place] DICTATED BY: BRUNILDA WAN Jr., MD DATE: 12/30/242140 ELECTRONICALLY SIGNED BY: BRUNILDA WAN Jr., MD DATE: 12/30/242140 DX & DISP Disposition: Discharge Departure Impression: Primary Impression: Hypokalemia Additional Impression: Mild dehydration Condition: Stable Additional Instructions: Your blood work today showed a low potassium level and mild dehydration which could have contributed to your symptoms. You were given IV fluids and oral potassium in the emergency department. The remainder of your blood work is unremarkable. Your CT scan is normal. Your cardiac enzymes are negative. Your chest x-ray is normal. Please follow up with your primary care doctor in 2-3 days. Referrals: SELF,REFERRAL (PCP) I have reviewed the case, and I agree with, Diagnosis and Plan Attestation I performed the substantive portion of the visit. I have reviewed and personally made and approve the management plan that is documented in the note by myself or the YENNI. I acknowledge for responsibility for the patient's management plan. RICKY MORRIS Dec 30, 2024 18:10
[2024-12-30 18:33] LABS: IMMATURE GRANULOCYTE ABSOLUTE 0.07 K/uL (0-1); NUCLEATED RED BLOOD CELLS 0.0 % (0.0-0.19); PLATELET COUNT (AUTO) 252 K/uL (130-400); RED BLOOD CELL COUNT(AUTO) 4.40 MIL/uL (4.00-5.50); RED CELL DISTRIBUTION WIDTH 12.9 % (11.0-15.5); WHITE BLOOD COUNT (AUTO) 11.5 K/uL (4.8-10.8)
[2024-12-30] MEDS: 0.9%NACL 1000ML 1,000 ML IV SCH (18:48)
[2024-12-30 18:51] LABS: ASPARTATE AMINOTRANSFERASE 14.0 U/L (10-37); CREATINE KINASE, TOTAL 38.0 U/L (21-232); CREATININE 0.8 mg/dL (0.5-1.0); GLOMERULAR FILTR. RATE CALC 91.0 mL/min (>90); GLUCOSE,RANDOM 83.0 mg/dL (70-105); SODIUM SERUM 140.0 mmol/L (136-145); TOTAL PROTEIN, SERUM 7.6 g/dL (6.0-8.3); UREA NITROGEN, BLOOD 14.0 mg/dL (7-18)
--- NOTE | 2024-12-30 19:10 | NUR ---
PATIENT AT CT SCAN AT THIS TIME.
--- NOTE | 2024-12-30 19:50 | HMCIMG ---
EXAM: CR Chest, 1 View. CLINICAL HISTORY: cp COMPARISON: None provided. FINDINGS: LUNGS: There is no mass, infiltrate, or acute pulmonary abnormality. PLEURAL SPACES: No evidence of pleural effusion or pneumothorax. MEDIASTINUM: The cardiomediastinal silhouette is within normal limits. BONES: No acute osseous abnormality. IMPRESSION: No acute cardiopulmonary pathology is evident. /[place]
--- NOTE | 2024-12-30 20:41 | HMCIMG ---
EXAM: CT Head Without IV contrast. CLINICAL HISTORY: dizziness. TECHNIQUE: Axial computed tomography images of the head/brain without intravenous contrast. COMPARISON: None provided. FINDINGS: BRAIN: No evidence of acute hemorrhage. No mass lesion. No CT evidence for acute territorial infarct. No midline shift or extra-axial collections. VENTRICLES: No hydrocephalus. ORBITS: The orbits are unremarkable. SINUSES AND MASTOIDS: The paranasal sinuses and mastoid air cells are clear. BONES: No fracture. SOFT TISSUES: Unremarkable. IMPRESSION: No acute intracranial abnormality. /[place]
[2024-12-30 21:18] VITALS: BP 138/83; PULSE 68; RESP 18; TEMP 98.2; O2SAT 98
--- NOTE | 2024-12-31 06:33 | EKG ---
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 : 1975 Requested By: RICKY MORRIS Order Number: [id number] Reading MD: Kayley Galaviz Measurements Intervals [place] Rate: 68 P: 46 NC: 207 QRS: -41 QRSD: 88 T: 12 QT: 383 QTc: 407 Interpretive Statements Sinus rhythm Borderline prolonged NC interval Left anterior fascicular block Low voltage, precordial leads Consider anterior infarct Compared to ECG 07/06/2021 16:17:11 Left anterior fascicular block now present Low QRS voltage now present Sinus bradycardia no longer present Myocardial infarct finding still present Electronically Signed On 12-31-2024 14:33:48 CDT by Kayley Galaviz Please click the below link to view image of tracing.
== END 2024-12-30 21:21 | disposition home or self-care (01) ==
LOC: EDH 17:28
DX: E86.0 Dehydration (principal); E87.6 Hypokalemia; F17.200 Nicotine dependence, unspecified, uncomplicated
CPT/HCPCS: 99284; 96360; 70450; 71045; 82550; 80076; 84484; 80048; 84703; 85025; 36415; 93005; J7030

== ENCOUNTER 2025-03-03 14:51 | Emergency (ER) | payer BC ==
[~2025-03-03] VITALS: Ht 152.4 cm; Wt 63.5 kg
[2025-03-03 14:52] VITALS: TEMP 98.6
[2025-03-03 17:09] VITALS: BP 147/69; PULSE 66; RESP 16; O2SAT 97
[2025-03-03] MEDS ORDERED: CLIN-141 PO (17:43)
--- NOTE | 2025-03-03 17:43 | ERN ---
ED Note History of Present Illness Stated Complaint: SPIDER BITE Chief Complaint: Insect Bite Time Seen by MD: 17:08 Time Seen by Midlevel: 17:08 Dictation: The patient is a 49-year-old female who presents to the emergency department with complains of spider bite to genital area onset this morning at around 5:30am. Patient reports it was a small brown spider. Denies fevers. Reports up to date with Tdap. Allergies: Coded Allergies: No Known Drug Allergies (Unverified Allergy, Unknown, 07/14/19) Home Meds Active Scripts Amoxicillin/Potassium Clav (Amox Tr-K Clv 875-125 mg Tab) 875 Mg-125 Mg Tablet, 1 EACH PO BID for 5 Days, #10 TAB 0 Refills Prov:ELAN BRADY MD 05/12/24 Ibuprofen (Ibuprofen) 600 Mg Tablet, 600 MG PO Q6H PRN for PAIN, #15 TAB 0 Refills Prov:MADY SOLO [employer]ATIVE DIRECTOR 11/21/23 Diphenhydramine HCl (Benadryl) 25 Mg Capsule, 25 MG PO TID, #30 CAP Prov:KATERINA VILLA MD 09/02/22 Epinephrine (Epipen 2-Mukund) 0.3 Mg/0.3 Ml Auto.injct, 0.3 MG IJ AD, #1 KIT Prov:KATERINA VILLA MD 09/02/22 Past Medical History Past Medical History: Other Additional Past Medical Hx: HEART MURMUR Surgical History: None Social History: Smokers, Lives with family History: Not Applicable : 1 Para: 0 Aborts: 0 RN Note Reviewed/Agreed w/PFSH: Yes Review of System Dictation Constitutional: Negative for fever,chills, and weight loss Eyes: Negative for injury, pain,redness, and discharge ENT: Negative for injury,pain or swelling Cardiovascular: Negative for chest pain, palpitations, and edema Respiratory: Negative for shortness of breath, cough, and wheezing, Abdomen/GI: Negative for abdominal pain, nausea, vomiting, diarrhea, and constipation Back: Negative for injury and pain : Negative for injury, bleeding and discharge MS/Extremity: Negative for injury and deformity Skin: Negative for rash, and discoloration positive for spider bite Neuro: Negative for headache, weakness, numbness, tingling, and seizure Psych: Negative for suicide ideation, homicidal ideation, and hallucinations Initial Vital Sign VS Vital Signs Date Time Temp Pulse Resp B/P (MAP) Pulse Ox O2 Delivery O2 Flow Rate FiO2 03/03/25 14:52 98.6 75 18 167/77 98 03/03/25 16:50 Room Air* 0 21 Physical Exam Dictation Vital Signs reviewed General Appearance: Alert, oriented x 3, no acute distress, well developed, nourished. Head and Face: non-traumatic. Eyes: PERRL, pink conjunctivas, eyelid no trauma, anterior chamber with arcus senilis. Ears: Pinnas intact and no signs of trauma or erythema ear canals clear and no discharge TM no erythema Nose: No discharge, no bleeding. Oropharynx: Mouth normal, tongue pink. pharynx clear,no erythema, tonsils no exudates, no abscesses noted, mucous membrane moist Neck: Supple, non-tender, no thyromegaly, no masses, no JVD, no bruits Breast:Deferred Chest:No tenderness, no crepitus, no paradoxical movement, no retractions Lungs:Clear, well-ventilated, symmetric, no rales, no wheezing, no rhonchi, no stridor, good breath sounds bilaterally Heart: Regular rate, regular rhythm, no murmur, no gallops Vascular: no peripheral edema, Abdomen: Soft, positive bowel sounds, nondistended, no guarding, nontender, no rebound, no masses no hepatomegaly, no splenomegaly, no Quezada's sign, no hernias. Rectal: Deferred Genital: Deferred Neurological: Normal speech, motor function intact, sensory function intact Musculoskeletal: Neck nontender, full range of motion, back nontender, full range of motion, Extremities: nontender, full range of motion Skin: Color pink, dry, no turgor, no rash, no lacerations, no abrasions, no contusions. small 1x1cm erythremic lesion to suprapubic area, no drainage. Lymphatic: Deferred Results (Laboratory/Radiology) Labs Reviewed?: Yes ED Course ED Course Vital Signs Date Time Temp Pulse Resp B/P (MAP) Pulse Ox O2 Delivery O2 Flow Rate FiO2 03/03/25 17:09 66 16 147/69 97 Room Air* 0 21 03/03/25 16:50 62 16 129/76 98 Room Air* 0 21 03/03/25 14:52 98.6 75 18 167/77 98 Medical Decision Making MDM The patient is a 49-year-old female who presents to the emergency department with complains of spider bite to genital area onset this morning at around 5:30am. Patient reports it was a small brown spider. Denies fevers. Reports up to date with Tdap. Patient with a small erythremic lesion to pelvic area around 1x1cm, no drainage. Patient will be strated on antibiotics and instructed to follow up with PCP. Differential diagnosis: Abscess, cellulites, inset bite Need for hospitalization: Patient does not meet criteria for hospitalization. There are no social concerns with this patient. DX & DISP Disposition: Discharge Departure Impression: Primary Impression: Insect bite Condition: Stable Scripts Clindamycin HCl (Clindamycin HCl) 300 Mg Capsule 1 CAP PO QID for 7 Days, #28 CAP 0 Refills Prov: NARINDER BARRIENTOS 03/03/25 Additional Instructions: Please take your medications as prescribed. Follow up with the primary doctor in 1-2 days. If symptoms worsen please return to ER. FOLLOW-UP WITH PRIMARY CARE PROVIDER IN 1 TO 2 DAYS. TAKE MEDICATIONS DIRECTED HERE IN THE EMERGENCY ROOM. OKAY TO CONTINUE HOME MEDICATIONS UNLESS OTHERWISE DISCUSSED DURING YOUR VISIT IN THE EMERGENCY ROOM TODAY. RETURN TO YOUR NEAREST EMERGENCY ROOM IF SYMPTOMS WORSEN OR IF THERE IS NO IMPROVEMENT. CALL 911 IF YOU NEED IMMEDIATE ASSISTANCE. TAKE TYLENOL EATC-TPX-POHYEMF NEEDED AND IF NO CONTRAINDICATIONS ARE PRESENT. INCREASE ORAL HYDRATION. A WOUND CULTURE OR URINE CULTURE WAS ORDERED HERE IN THE EMERGENCY ROOM DEPARTMENT PLEASE FOLLOW-UP WITH PRIMARY CARE PROVIDER AND ADVISE THEM TO GET REPEAT PORTS FROM OUR FACILITY. IF YOU HAD ANY ALEYDA WRAP/SPLINTS THAT WERE APPLIED HERE, PLEASE DO NOT REMOVE THEM UNTIL YOU SEE YOUR PRIMARY CARE OR SPECIALTY. Referrals: SELF,REFERRAL (PCP) Time of Disposition: 17:41 I have reviewed the case, and I agree with, Diagnosis and Plan NARINDER BARRIENTOS Mar 03, 2025 17:43
[2025-03-03] MEDS: CLINDAMYCIN 150 MG CAP PO ONE (17:57)
== END 2025-03-03 18:00 | disposition home or self-care (01) ==
LOC: EDH 14:51
DX: T63.301A Toxic effect of unspecified spider venom, accidental (unintentional), initial encounter (principal); F17.200 Nicotine dependence, unspecified, uncomplicated; Y92.89 Other specified places as the place of occurrence of the external cause
CPT/HCPCS: 99283